=== PATIENT | female | born 1945 | race Caucasian/White ===

== ENCOUNTER → 2017-09-27 | Outpatient (CLI) | payer MEDICARE, BC ==
[~2017-09-27] MED LIST: BARIUM SULFATE 135 ML (E-Z HD) PO; SIMETH/SOD BICARB/CIT AC PKT (E-Z- GAS II) PO
== END | disposition home or self-care (01) ==
LOC: RAD 08:59
DX: K21.9 Gastro-esophageal reflux disease without esophagitis (principal); R13.10 Dysphagia, unspecified; Z98.84 Bariatric surgery status
CPT/HCPCS: 74240